=== PATIENT | male | born 1975 | race Two or more races ===

== ENCOUNTER 2020-04-25 09:16 | Emergency (ER) | payer SELFPAY ==
[~2020-04-25] VITALS: Ht 175.3 cm; Wt 95.3 kg
[~2020-04-25 09:16] MED LIST: CYCLOBENZAPRINE10 MG ORAL; IBUPROFEN600 MG ORAL
--- NOTE | 2020-04-25 09:45 | NUR ---
ED Nurse Note: Pt came in to ED with wc assistance d/t L knee pain noted with swelling that has been going on for 3 days; skin intact. Pt is AOx4, calm and cooperative to care, VSS, on RA, afebrile on triage. Pt denies any trauma/injury on the affected site; states L knee is more painful upon palpation added with pressure.
[2020-04-25 09:50] VITALS: BP 146/78
[2020-04-25] MEDS ORDERED: HYDROcodone/Acetamin 5/325 tab ORAL ONE (10:00)
--- NOTE | 2020-04-25 10:24 | NUR ---
ED Nurse Note: x-ray at bedside.
--- NOTE | 2020-04-25 10:56 | Diagnostic Imaging Report ---
EXAM: XR Left Knee, 3 Views CLINICAL HISTORY: PAIN TECHNIQUE: Three views of the left knee. COMPARISON: None FINDINGS: Bones/joints: No displaced fracture or dislocation identified. Mild degenerative changes of the left knee. Moderate knee joint effusion. Soft tissues: Mild prepatellar soft tissue swelling. IMPRESSION: 1. No displaced fracture or dislocation identified. 2. Moderate knee joint effusion.
[2020-04-25] MEDS ORDERED: NORCO 5-325 TA1 EAC1 ORAL (11:22)
[2020-04-25] MEDS ORDERED: IBUPROFEN600 M1 ORAL (11:22)
--- NOTE | 2020-04-25 11:23 | NUR ---
Acewrap bandage has been applied to pts left lower ext, and crutches has been provided w/ education on proper usage
[2020-04-25 11:28] VITALS: BP 148/80
--- NOTE | 2020-04-25 11:28 | NUR ---
ER DISCHARGE NOTE: Patient is cleared to be discharged per ERMD, pt is aox4, on room air, with stable vital signs. pt was given dc and prescription instructions, pt was able to verbalize understanding, pt id band removed. pt is able to ambulate with steady gait. pt took all belongings.
--- NOTE | 2020-04-26 07:10 | Emergency Room Report ---
History of Present Illness General Chief Complaint: Pain Source: Patient, Medical Record Present Illness HPI 44-year-old male presents to ED with left knee pain. Came from home. States he has been having pain for the last 3 days. States the knee is swollen. Denies any fall or injury. Pain is dull, 9 out of 10, nonradiating. Denies fevers or chills. States it is difficult to bear weight. No other aggravating relieving factors. 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 COVID-19 Screening: Negative COVID-19 COVID-19 Testing Source: K -1month ago Patient History Past Medical History: none Past Surgical History: none Pertinent Family History: none Social History: Denies: smoking, alcohol use, drug use Immunizations: UTD Reviewed Nursing Documentation: PMH: Agreed; PSxH: Agreed Nursing Documentation-PMH Past Medical History: No History, Except For Review of Systems All Other Systems: negative except mentioned in HPI Physical Exam Vital Signs Date Time Temp Pulse Resp B/P (MAP) Pulse Ox O2 Delivery O2 Flow Rate FiO2 04/25/20 09:29 98.2 63 18 146/78 (100) 97 Room Air Sp02 EP Interpretation: reviewed, normal General Appearance: no apparent distress, alert, GCS 15, non-toxic, obese Head: normocephalic, atraumatic Eyes: bilateral eye normal inspection, bilateral eye PERRL ENT: hearing grossly normal, normal pharynx, no angioedema, normal voice Neck: full range of motion, supple/symm/no masses Respiratory: chest non-tender, lungs clear, normal breath sounds, speaking full sentences Cardiovascular #1: regular rate, rhythm, no edema Cardiovascular #2: 2+ carotid (R), 2+ carotid (L), 2+ radial (R), 2+ radial (L), 2+ dorsalis pedis (R), 2+ dorsalis pedis (L) Gastrointestinal: normal bowel sounds, non tender, soft, non-distended, no guarding, no rebound Rectal: deferred Genitourinary: normal inspection, no CVA tenderness Musculoskeletal: back normal, normal range of motion, gait/station normal, swelling - Left knee. No crepitus. No erythema or induration Neurologic: alert, motor strength/tone normal, oriented x3, sensory intact, responsive, speech normal Psychiatric: judgement/insight normal, memory normal, mood/affect normal, no suicidal/homicidal ideation Reflexes: 3+ bicep (R), 3+ bicep (L), 3+ tricep (R), 3+ tricep (L), 3+ knee (R), 3+ knee (L) Lymphatic: no adenopathy Procedures Splinting Splinting : Consent: Verbal Pre-Made Type: KERRI wrap Pre-Proc Neuro Vasc Exam: normal Post-Proc Neuro Vasc Exam: normal Patient Tolerated: Well Complications: None Medical Decision Making Diagnostic Impression: Primary Impression: Knee pain Qualified Codes: M25.562 - Pain in left knee ER Course Hospital Course 44-year-old male presents with knee pain and swelling Differential diagnoses include: Fracture, dislocation, sprain, contusion Clinical course Patient placed on stretcher. After initial history and physical, I ordered pain medications and Xrays of left knee xrays prelim read shows no acute fracture/dislocation. There is an effusion. There is DJD I discussed findings with patient. No signs of septic joint or gout. Likely inflammatory arthritis. Placed in kerri wrap, given crutches Safe for discharge for close outpatient follow-up. I will provide Ortho referrals Diagnosis -knee pain Stable and discharged to home with prescription for Motrin. apply ice, keep elevated. weight bear as tolerated. Followup with [facility] Ortho. Return to ED if symptoms recur or worsen Other X-Ray Diagnostic Results Other X-Ray Diagnostic Results : X-Ray ordered: Left knee # of Views/Limited Vs Complete: 3 View Indication: Swelling EP Interpretation: Yes Interpretation: no dislocation, no soft tissue swelling, no fractures, other - Prepatellar effusion, DJD Impression: No acute disease Electronically Signed by: Electronically signed by Atul Swanson MD Last Vital Signs Date Time Temp Pulse Resp B/P (MAP) Pulse Ox O2 Delivery O2 Flow Rate FiO2 04/25/20 11:28 98.3 65 19 148/80 99 Room Air Status: improved Disposition: HOME, SELF-CARE Condition: Stable Scripts Hydrocodone Bit/Acetaminophen 5-325* (NORCO 5-325 TABLET*) 1 Each Tablet 1 TAB ORAL Q6H PRN for FOR PAIN, #12 TAB 0 Refills Prov: Atul Swanson MD 04/25/20 Ibuprofen* (MOTRIN*) 600 Mg Tablet 600 MG ORAL Q8H PRN for FOR PAIN, #30 TAB 0 Refills Prov: Atul Swanson MD 04/25/20 Referrals: NON PHYSICIAN (PCP) [facility] Open 24 hour /7 days a week by Appointment Only [address] [facility] [id number] Departure Forms: Return to Work Return to Work Date: Apr 28, 2020 Work Restrictions: No Prolonged Standing Atul Swanson MD Apr 26, 2020 07:10
== END 2020-04-25 11:28 | disposition home or self-care (01) ==
LOC: EMR 09:43
DX: M17.12 Unilateral primary osteoarthritis, left knee (principal); M25.562 Pain in left knee
CPT/HCPCS: 99283